=== PATIENT | male | born 1955 | race Caucasian/White ===

== ENCOUNTER 2022-01-07 13:27 | Outpatient (CLI) | payer BC, SELFPAY ==
--- NOTE | ~2022-01-07 | XR_ITS ---
XR lumbar spine min 4V 01/07/2022 13:56 Indication: Back pain Procedure: 5 views lumbar spine Comparison: No prior studies for comparison. Findings: There is severe disc narrowing at all lumbar levels. Prominent marginal osteophytes at mult iple levels. No fracture, subluxation or dislocation. No significant alteration of alignment with fle xion/extension. There is severe multilevel facet hypertrophy. There is levoscoliosis. Impression: 1: Severe lumbar spondylosis with levoscoliosis. Reviewed, dictated and finalized at location A. Impression: 1: Severe lumbar spondylosis with levoscoliosis.
== END 2022-01-07 13:28 | disposition home or self-care (01) ==
PROVIDERS: Visit Provider Neurological Surgery
DX: M54.9 Dorsalgia, unspecified (principal); M47.816 Spondylosis without myelopathy or radiculopathy, lumbar region; M41.86 Other forms of scoliosis, lumbar region
CPT/HCPCS: 72110

== ENCOUNTER 2022-01-19 01:01 | Day surgery (SDC) | payer BC, SELFPAY ==
--- NOTE | 2022-01-14 12:28 | PC.NURSE ---
Report to the Outpatient Waiting Room, entrance under the green pavilion located off [facility], at time _0930 on date __01/19/22 . OR Time: ___1130 . - You and your visitor will be asked a series of questions to screen for COVID 19 for your protection. - Only one visitor is allowed at this time. - The patient visitor is requested to leave or wait in car when not with patient. - A mask is required within the hospital. Patients may have clear liquids (water, carbonated beverages, clear teas, apple juice) until 3 hours prior to surgery with a maximum of 20 ounces. - No food from midnight until time of surgery - Infants may have breast milk until 4 hours before surgery, infant formula 6 hours prior to surgery. - Children will be allowed to drink immediately following surgery. If applicable, please bring a bottle or sippy cup to assist with drinking. Juice, water, soda, and popsicles are readily available. For infants on formula, please bring formula the day of surgery. Pacifiers are allowed. Take the following medications with a SIP of water the morning of surgery: _ALPRAZOLAM,SERTRALINE,HYDRALAZINE, PAIN PILL IF NEEDED Medications to discontinue per physician __ALL VITAMINS OR SUPPLEMENTS 3 DAYS PRE OP Date to take last dose___01/15/22 Please no make-up, nail serbian, hairspray, perfume, deodorant, or body powder the day of surgery. No jewelry (including any body piercings) or valuables the day of surgery, leave them at home. Please take a shower or bath the night before, or the morning of, surgery with an antibacterial soap. Wear comfortable, loose fitting clothing. Children are encouraged to wear pajamas. - Jewelry must be removed prior to entering the operating room. Rings and piercings that are not removed may be cut off. - The hospital will not accept responsibility for valuables. - Please leave all valuables, including medications, at home the day of surgery. If you are going home after surgery, a licensed local flatbed driver must drive you home. - NO public transportation without another adult. - We recommend that an adult stay with you for 24 hours following discharge. - We also recommend that you do not drive, make important decision, drink alcoholic beverages, or take any drugs that were not prescribed by your health care provider for at least 24 hours after your discharge time. For Pediatric surgeries, we recommend two adults accompany the child home (only one inside the building at this time). Follow any additional instructions given to you from your surgeon. If you or anyone in your household have experienced Covid symptoms in the past week, please notify your surgeon or the nurse liaison at the phone number below for possible testing. Telephone instructions given to _PT'S DENISE and asked if any additional questions and then verbalized understanding. Patient advised to call surgeon office or pre surgery nurse liaison [phone] if any additional questions.
[2022-01-14 12:36] VITALS: BMI 29.8
--- NOTE | 2022-01-18 14:49 | WPDANESEPPF ---
Anes - Initial Pre Proc Eval Procedure: Operation Date: 01/19/22 12:00 Proposed Procedures p Lumbar Decompression L3-4, L4-5 Centrally and Left at L5 S1 - Inna Pearson MD Date/Time: 01/18/22 14:49 Surgeon: Inna Pearson MD Pre Op Diagnosis: Lumbar Stenosis Patient Data Age: 66 Gender: M Height: 1.83 m Weight: 99.8 kg Allergies Allergy/AdvReac Type Severity Reaction Status Date / Time No Known Allergies Allergy Unverified 01/19/22 10:06 Home Medications Medication Instructions Recorded Confirmed Type allopurinol 300 mg tablet 150 mg PO DAILY 01/07/22 01/19/22 History alprazolam 0.5 mg tablet 0.5 mg PO DAILY 01/07/22 01/19/22 History fenofibrate micronized 134 mg 134 mg PO DAILY 01/07/22 01/19/22 History capsule hydralazine 25 mg tablet 25 mg PO TID 01/07/22 01/19/22 History multivitamin 1 tablet PO DAILY 01/07/22 01/19/22 History omeprazole 10 mg capsule,delayed 10 mg PO DAILY 01/07/22 01/19/22 History release pravastatin 40 mg tablet 40 mg PO DAILY 01/07/22 01/19/22 History sertraline 50 mg tablet 50 mg PO DAILY 01/07/22 01/19/22 History tamsulosin 0.4 mg capsule 0.4 mg PO DAILY 01/07/22 01/19/22 History valsartan 160 mg tablet 160 mg PO DAILY 01/07/22 01/19/22 History cholecalciferol (vitamin D3) 50 50 mcg PO DAILY 01/14/22 01/19/22 History mcg (2,000 unit) tablet cyanocobalamin (vitamin B-12) 1,000 mcg PO DAILY 01/14/22 01/19/22 History 1,000 mcg tablet hydrocodone 5 mg-acetaminophen 325 1 tablet PO PRN PRN Pain 01/14/22 01/19/22 History mg tablet zinc 50 mg tablet 50 mg PO DAILY 01/14/22 01/19/22 History Patient hx anesthesia problems: none Family hx anesthesia problems: none Results Review: All pre-operative results and documents have been reviewed as part of the pre-operative evaluation. PMFSH Past Medical History Medical History (Updated 01/18/22 @ 14:50 by Arjun Navraro MD) Acute anxiety Arthritis Gout High blood cholesterol Hypertension Kidney stones Lumbar stenosis with neurogenic claudication Overweight (BMI 25.0-29.9) PONV (postoperative nausea and vomiting) Surgical History Surgical History (Updated 01/07/22 @ 12:11 by Kate Jo MA) H/O shoulder surgery Status post left foot surgery Family History Family History (Updated 01/07/22 @ 12:11 by Kate Jo MA) Other Asthma Heart disease Hypertension Social History Social History (Updated 01/07/22 @ 12:12 by Kate Jo MA) Smoking status: Never smoker Alcohol intake: never Substance use: never Substance use type: does not use Living arrangements: with family Spiritual care concerns: No Anes - Eval Final PreProcedure Day of Procedure 01/18/22 14:49 Patient weight: overweight Heart: regular rate and rhythm Lungs: clear to auscultation and normal air movement Airway: Mallampati scale class II Neurological: alert and oriented Last oral intake: >/= 8 hours ASA classification: III Emergent: no Anesthetic plan: proceed Anesthesia type and monitoring: general ETT Results Review: All pre-operative results and documents have been reviewed as part of the pre-operative evaluation. Informed Consent: The patient's anesthetic plan and its attendant risks and benefits were discussed with the patient/family/POA. Questions were solicited and answers provided to the satisfaction of the patient/family/POA.
[2022-01-19] VITALS (17 sets, daily range): BP systolic 152–190; BP diastolic 66–100; PULSE 64–94; RESP 8–28; TEMP 36.2–36.7; O2SAT 95–100
--- NOTE | ~2022-01-19 | XR_ITS ---
EXAMINATION: XR fluoroscopy no charge DATE: 01/19/2022 12:46 INDICATION: Lumbar decompression TECHNIQUE: A single lateral fluoroscopic image of the lower lumbar spine was obtained during procedur e performed by Dr. Pearson. Radiologist was not present for the imaging or procedure. The amount of flu oroscopy time used during this procedure was 0.1 minutes. COMPARISON: 01/07/2022 FINDINGS: Soft tissue retractors project over the region of the spinous processes of L4 and L5. Severe disc hei ght loss at L3-L4, moderate disc height loss at L4-L5 and mild disc height loss at L5-S1. IMPRESSION: 1. Fluoroscopy utilized during neurosurgical procedure at the lower lumbar spine. See procedure note for further detail. 2. Severe lumbar spondylosis. Reviewed, dictated and finalized at location A. IMPRESSION: 1. Fluoroscopy utilized during neurosurgical procedure at the lower lumbar spin e. See procedure note for further detail. 2. Severe lumbar spondylosis.
[2022-01-19] MEDS: LACTATED RINGERS 1,000 ML 30 ML IV CONT ×2 (10:30→14:29)
--- NOTE | 2022-01-19 11:49 | WPDHPUPDATE1 ---
History and Physical Update Update Date/Time: 01/19/22 11:49 History and Physical has been reviewed, including an updated exam of the patient. There are NO changes in the patient's condition. Risks, benefits, and alternatives have been discussed and questions answered. Patient agrees to proceed with procedure. Plan is for lumbar decompression at L3-4 and L4-5 bilaterally and at L5-S1 on the left
[2022-01-19] MEDS: ceFAZolin 2 GM/D5W 50 ML 2 GM/50 ML BAG IVPB (12:01)
[2022-01-19] MEDS: LIDO 1%/EPINEPHRINE 1:100,000 10 ML VIAL INFILTRATE (12:34)
[2022-01-19] MEDS: BUPIVACAINE HCL 0.5% PF 30 ML VIAL 10 ML INFILTRATE (12:34)
--- NOTE | 2022-01-19 14:12 | W.PM.PROC2 ---
Procedure Note - Detailed Date of Procedure 01/19/22 Pre-op Diagnosis Lumbar Stenosis Post-op Diagnosis Same Procedure Performed Lumbar decompression L3-4, L4-5, and L5-S1 Surgeon Inna Pearson MD Anesthesia General Indications Mat Mendosa is a very pleasant 66 year old male who presents with claudicatory and radicular lower extremity pain, sensory change, and mild weakness in a left L5 distribution in the setting of severe spinal stenosis present from L3-4 through L5-S1. He has not had lasting relief with non surgical measures and presents for lumbar decompression L3-4, L4-5 and L5-S1. Please see my office visit note (in the chart) for full documentation as to decision making process leading to surgery including documentation as to indications, risks and recovery from surgery Description of Procedure The patient was brought into the operating room where general anesthesia was induced.? Appropriate monitoring was obtained.? The patient was turned into a prone position on the Jc table with a Irving frame.? Extremeties were padded.? The patient was secured to the table.? Localization was performed using intraoperative fluoroscopy and the L3-4, L4-5 and L5-S1 level was identified. The patient's back was prepped and draped sterilely.? A surgical time out was performed.? The planned incision was infused with local anesthetic.? The incision was made using a #10 skin blade.? Hemostasis was achieved. Self retaining retractors were placed and advanced.? The L3 and L4 and L5 spinous proceeses were identified and the muscle was dissected off of the spinous process and lamina of L3 and L4 and L5 using bovie electrocautery.? Self retaining retractors were advanced. Attention was first turned to the L3-4 level.? A curette was placed under the L3 lamina and the L4 level and and the L3-4 and L4-5 levels were confirmed again using intraoperative fluoroscopy with the L5-S1 level exposed caudally.? The spinous process of both L3 and L4 and then L5 was removed using a rongeur.? At the L3-4 level, the lamina was drilled using a high speed eric drill with a matchstick tip.? The lamina was drilled lateral to the level of the facet complex until, inferiorly, ligament was visible.? The lamina was thinned and then dissected from the lamina using a curette.? The remaining lamina and medial facet at L3-4 were removed with kerossen punches.? The ligament was then carefully dissected away from the thecal sac and removed using kerossen punches.? The foramen at L3 and L4 were drilled and dissected / decompressed using the kerossen punches. Attention was then turned to the L4-5 level.? ? The lamina was drilled using a high speed eric drill with a matchstick tip.? The lamina was drilled lateral to the level of the facet complex until, inferiorly, ligament was visible.? The lamina was thinned and then dissected from the lamina using a curette.? The remaining lamina and medial facet at L4-5 were removed with kerossen punches.? The ligament was then carefully dissected away from the thecal sac and removed using kerossen punches.? On the left side in the lateral recess there was significant facet hypetrophy which made the dissection challenging. Thus the decision was made to perform the L5-S1 decompression prior to completion of the left lateral recess decompression at L4-5. Attention was then turned to the L5-S1 level.? ? The lamina was drilled using a high speed eric drill with a matchstick tip.? Given the degree of lateral recess stenosis and ligamentous hypertrophy, the decision was made to perform a full laminectomy at L5 in order to better dissect above and below L4-5 on the left. The lamina was drilled lateral to the level of the facet complex until, inferiorly, ligament was visible.? The lamina was thinned and then dissected from the lamina using a curette.? The remaining lamina and medial facet at L5-S1 were removed with kerossen punches.? The ligament was then carefully dissected away from
[2022-01-19] MEDS: fentaNYL CITRATE INJ (*CRX) 100 MCG/2 ML VIAL 25 MCG IV PUSH ×9 (14:54→15:54)
[2022-01-19] MEDS: HYDROmorphone HCL INJ (*CRX) 1 MG/ML SYR 0.5 MG IV PUSH ×2 (15:48→15:59)
--- NOTE | 2022-01-19 17:48 | PC.NURSE ---
Folder Gluer Operator spoke with Dr. Pearson regarding MAR and comments. Dr. Pearson okayed to give medications in MAR labled post op in the comments on 3 medical.
[2022-01-19] MEDS: KCL 20 MEQ/D5/0.45% SOD CHL 1,000 ML 100 ML IV CONT (18:25)
[2022-01-19] MEDS: HYDROcodone/acetaminophen (*CRX) 5-325 MG TABLET 1 TAB PO (18:30)
--- NOTE | 2022-01-19 19:19 | PC.NURSE ---
This patient, Mat Mendosa, was admitted to Medical Room 343-01. Patient/family oriented to hospital policies and general routines including ID bracelet, bed and alarms, visiting hours, pain management, procedures, bathroom and other care routines, personal items, smoking policy, room service/diet, and visiting hours. Information on how to activate the Rapid Response Team has been discussed. Patient/Family are encouraged to report perceived risks to care and to ask questions if they do not understand what they are told or what they should do.
[2022-01-19] MEDS: MORPHINE SULFATE (*CRX) 2 MG/ML INJ IV PUSH ×2 (20:10→22:56)
[2022-01-19] MEDS: CYCLOBENZAPRINE HCL 10 MG TABLET PO (20:10)
[2022-01-19] MEDS: hydrALAZINE HCL 25 MG TABLET PO (21:29)
[2022-01-19] MEDS: DOCUSATE SODIUM 100 MG CAPSULE PO (21:29)
[2022-01-19] MEDS: VALSARTAN 160 MG TABLET PO (21:29)
[2022-01-19] MEDS: NIFEdipine 30 MG TAB.ER.24 90 MG PO (21:30)
[2022-01-20] MEDS: MORPHINE SULFATE (*CRX) 2 MG/ML INJ IV PUSH (01:46)
[2022-01-20 02:40] VITALS: BP 193/83; PULSE 76; RESP 18; TEMP 36.6; O2SAT 97
[2022-01-20] MEDS: HYDROcodone/acetaminophen (*CRX) 10-325 MG TABLET 1 TAB PO ×2 (02:42→08:07)
[2022-01-20] MEDS: hydrALAZINE HCL 25 MG TABLET PO ×2 (06:22→13:02)
[2022-01-20 07:32] VITALS: BP 183/65; PULSE 74; RESP 16; TEMP 37.1; O2SAT 94
--- NOTE | 2022-01-20 08:00 | WPDANESPN ---
Anes - Prog Note Post-Op Date/Time: 01/20/22 08:00 Cardiovascular status: normal Respiratory status: normal Airway patency: baseline Mental status: baseline Post-Op hydration status: normal Vital Signs: Last Vital Signs Temp 37.1 C 01/20/22 07:32 Pulse 74 01/20/22 07:32 Resp 16 01/20/22 07:32 BP 183/65 H 01/20/22 07:32 Pulse Ox 94 01/20/22 07:32 O2 Del Method Room Air 01/19/22 20:00 O2 Flow Rate 2 01/19/22 16:30 Pain Score (VAS): 4 I/O: Intake & Output 01/19/22 01/20/22 01/20/22 23:59 07:59 15:59 Intake Total 200 900 Output Total 40 6 Balance 160 894 01/19/22 10:14 Blood Type A Negative Antibody Screen Negative Post-procedural complaints: none Patient Feedback: Patient satisfied with anesthetic care.
[2022-01-20] MEDS: ALPRAZolam (*CRX) 0.5 MG TABLET PO (08:07)
[2022-01-20] MEDS: SERTRALINE HCL 50 MG TABLET PO (08:08)
[2022-01-20] MEDS: TAMSULOSIN HCL 0.4 MG CAPSULE PO (08:08)
[2022-01-20] MEDS: PANTOPRAZOLE SOD SESQUIHYDRATE 20 MG TAB PO (08:08)
[2022-01-20] MEDS: allopurinoL 300 MG TABLET PO (08:08)
[2022-01-20] MEDS: DOCUSATE SODIUM 100 MG CAPSULE PO (08:09)
[2022-01-20] MEDS: KCL 20 MEQ/D5/0.45% SOD CHL 1,000 ML 30 ML IV CONT (08:09)
--- NOTE | 2022-01-20 09:33 | PM.DS ---
DS: Admitting Diagnosis Discharge Date 01/20/2022 Admitting Diagnosis neurogenic claudication secondary to spinal stenosis DS: Discharge Diagnosis Discharge Diagnosis (1) Lumbar stenosis with neurogenic claudication: Code(s): M48.062 - Spinal stenosis, lumbar region with neurogenic claudication Status: Acute Plan Mr. Mendoas is a 66-year-old gentleman who presents for laminectomy for lumbar stenosis causing neurogenic claudication. DS: Summary Hospital Course Reason for hospitalization: Mr. Mendosa is a 66-year-old gentleman who presents for laminectomy for lumbar stenosis causing neurogenic claudication Hospital Course: Mr. Mendosa was taken to the operating room on 01/20/2028 where the aforementioned operation was performed without complication. The patient with the floor postoperatively. By postoperative day 1 he was eating, ambulating, emptying his bladder and his pain was under control with by mouth pain medicine. His wound remained clean dry and intact. He was afebrile with stable vital signs. He was therefore locked to be transferred home. Time Spent with Patient Time attestation: Total time spent providing and/or coordinating discharge services: Exam Narrative: Strength is 5/5 in all muscle groups of the bilateral lower extremities. Sensation is intact to light touch throughout the lower extremities. Dressing is clean, dry and intact. DS: Data Data Completed and Pending Labs on day of discharge: Labs from last 24 hours 01/19/22 10:14 Blood Type A Negative Antibody Screen Negative Discharge Plan Discharge Patient Disposition: Home, Self-Care Discharge Instructions: INSTRUCTIONS AFTER YOUR LUMBAR LAMINECTOMY/DECOMPRESSION/FORAMINOTOMY/DISCECTOMY Incisions may be closed with either: Steri-strips (let them wear off on their own). Surgical glue (let it peel off on its own). Sutures or marisol (call the office for an appointment to have these removed). Keep the incision dry for the first three days after surgery. Never apply ointments or lotions to the incision. The incision should be checked daily. Notify the office if there is drainage, redness, or if you have fever with a temperature of over 100 degrees. After the third postop day, it is okay to shower. Let soap and water run over your incision. No soaking in a tub, hot tub, or pool for at least one month. You are encouraged to walk as much as comfortable, with assistance as needed. For example, it may be beneficial to walk short distances hourly during the waking hours and gradually increase walking during your recovery period. Fatigue can be common. Avoid any bending, heavy lifting, twisting movements. You have an [id number]-pound lift restriction until further advised by your physician (A gallon of milk weighs eight pounds). Make frequent position changes, avoiding long periods of sitting. Try not to sit more than 30 minutes at a time. You may engage in sexual activity in two weeks as tolerated. No housework, especially vacuuming, making beds, or doing laundry until seen in the office. You may walk stairs carefully. Minimize car rides for two weeks. Driving can usually be resumed within two weeks; however, you may not drive at that time if still taking pain medications. Once you are discharged from the hospital, please call the office to set up your postop appointment. The physician may order pain medication and/or muscle relaxers. As time goes by, you should require less of these. Always take your medication as ordered, and only if needed. If you take more than prescribed, it will not be refilled early. If you feel you require narcotic medication refill, kindly give the office a 72-hour notice. No refills are given over the weekend. Anti-inflammatory meds (like Ibuprofen, Aleve, Advil, Motrin) may be used if approved by your surgeon. Over the counter Tylenol products may be used but use caution mixing Tylenol w
== END 2022-01-20 13:44 | disposition home or self-care (01) ==
LOC: ANHSURGERY 12:09 → ANH3MED 01-20 08:25
PROVIDERS: Visit Provider Neurological Surgery
PROC: (CPT 63005; principal; 2022-01-19 12:00)
DX: M48.062 Spinal stenosis, lumbar region with neurogenic claudication (principal); I10 Essential (primary) hypertension; E78.00 Pure hypercholesterolemia, unspecified; M10.9 Gout, unspecified; F41.9 Anxiety disorder, unspecified
CPT/HCPCS: 63047; 63048 ×2; 36415; 86850; 86900; 86901; 97161; 99199; A9270; J0690; J1100; J1170; J2270; J2405; J2704; J2710; J3010; J3480; J7120

== ENCOUNTER 2022-04-22 09:29 | Outpatient (CLI) | payer BC, SELFPAY ==
--- NOTE | ~2022-04-22 | XR_ITS ---
XR lumbar spine 2-3V 04/22/2022 09:53 Indication: Spinal stenosis. Low back surgery. Procedure: 2 views of the lumbar spine Comparison: 01/07/2022 Findings: There is advanced disc narrowing at all lumbar levels. No there are endplate degenerative c hanges at L1-2, L2-3 and L3-4. There is grade 1 spondylolisthesis at L5-S1. There are spinectomy nolan ges at L3-L5. There is levoscoliosis. There is atherosclerosis of the aorta. Impression: 1: Severe lumbar spondylosis with levoscoliosis and interim surgical change consistent with spinectom y at L3-L5. Reviewed, dictated and finalized at location B. Impression: 1: Severe lumbar spondylosis with levoscoliosis and interim surgical change con sistent with spinectomy at L3-L5.
== END 2022-04-22 09:30 | disposition home or self-care (01) ==
PROVIDERS: Visit Provider Neurological Surgery
DX: M48.061 Spinal stenosis, lumbar region without neurogenic claudication (principal); M43.06 Spondylolysis, lumbar region
CPT/HCPCS: 72100